=== PATIENT | female | born 2000 | race Caucasian/White ===

== ENCOUNTER 2023-01-26 09:27 | Observation (INO) | payer SELFPAY ==
[2023-01-26] MEDS ORDERED: fentaNYL 50 mcg/mL 1 mL Vial ONE ×2 (09:50→15:14)
[2023-01-26 10:25] LABS: #Basophils 0.1 10x3/uL (0.0-0.2); #Eosinphils 0.2 10x3/uL (0.0-0.5); #Neutrophils 11.4 10x3/uL (1.5-8.4); %Basophils 0.3 % (0.0-2.0); %Lymphocytes 23.3 % (18.0-47.0); %Monocytes 5.8 % (0.0-10.0); Hemoglobin 11.9 g/dL (12.0-15.5); Mean Corpuscular Hemoglobin 28.9 pg (27.0-33.0); Mean Corpuscular Volume 87.6 fl (81.6-98.3); Mean Platelet Volume 10.6 fl (7.4-10.4); Platelet Count 267 10x3/uL (150-450); RBC Distribution Width 12.8 % (11.5-14.5); Red Blood Cell (RBC) Count 4.12 10x6/uL (3.90-5.03); White Blood Cell (WBC) Count 16.5 10x3/uL (3.5-10.5)
[2023-01-26 10:38] LABS: BHCG - Serum Negative (NEGATIVE); Pregs Control Background? CLEAR/WHITE (CLR/WHITE); Pregs Control Bar Appear? YES (CONTROL BAR)
[2023-01-26 10:47] LABS: ALT (SGPT) 12 U/L (8-55); AST (SGOT) 18 U/L (5-34); Albumin 4.1 g/dL (3.5-5.0); Alkaline Phosphatase 69 U/L (40-100); Anion Gap 13 mmol/L (10-20); BUN (Urea Nitrogen) 12 mg/dL (7.0-18.7); Bilirubin, Total 0.2 mg/dL (0.2-1.2); Calc. Creatinine Clearance 0 mL/min (70-130); Calcium 9.1 mg/dL (7.8-10.44); Carbon Dioxide 26 mmol/L (22-29); Chloride 106 mmol/L (98-107); Estimated GFR 103; Globulin 2.7 g/dL (2.4-3.5); Glucose 124 mg/dL (70-105); Lipase 24 U/L (8-78); Potassium 3.8 mmol/L (3.5-5.1); Protein, Total 6.8 g/dL (6.0-8.3); Sodium 141 mmol/L (136-145)
[2023-01-26] MEDS ORDERED: Ketorolac Tromethamine 30 MG/ML VIAL ONE (10:57)
[2023-01-26] MEDS ORDERED: Morphine 2 MG/ML VIAL ONE (13:47)
[2023-01-26] MEDS ORDERED: Iopamidol 300 61% 100 ML VIAL FS ONE (14:17)
[2023-01-26 14:21] LABS: Hemoglobin 10.5 g/dL (12.0-15.5)
[2023-01-26] MEDS ORDERED: Bupivacaine HCl 0.5%/Epinephrine 1:200,000/PF 30 ml Vial ONE ×2 (15:05→15:06)
[2023-01-26] MEDS ORDERED: CEFAZOLIN 2 GM VIAL ONE ×2 (15:05)
[2023-01-26] MEDS ORDERED: PROPOFOL 20 ML ONE (15:14)
[2023-01-26] MEDS ORDERED: Ondansetron PF 4 MG/2 ML Vial ONE (15:15)
[2023-01-26] MEDS ORDERED: Rocuronium Bromide 10 MG/ML (10ML VIAL) ONE (15:15)
[2023-01-26] MEDS ORDERED: Lidocaine 1% PF 5 ML VIAL ONE (15:15)
[2023-01-26] MEDS ORDERED: Dexamethasone 20 MG/5 ML VIAL ONE (15:15)
[2023-01-26] MEDS ORDERED: SUGAMMADEX SODIUM 200 MG/2 ML VIAL ONE (15:16)
[2023-01-26] MEDS ORDERED: Ondansetron ODT 4 MG TAB PO PRN (16:52)
[2023-01-26 17:56] VITALS: BMI 22.4
[2023-01-26] MEDS: HYDROcodone/Acetaminophen 5/325 mg Tablet PO PRN (21:44)
[2023-01-26] MEDS ORDERED: Morphine 4 MG/ML VIAL SLOW IVP SCH (23:59)
[2023-01-27 00:34] LABS: Hemoglobin 10.3 g/dL (12.0-15.5); Platelet Count 237 10x3/uL (150-450)
[2023-01-27] MEDS: Simethicone Chewable 80 MG TAB PO PRN ×2 (03:00→09:21)
[2023-01-27] MEDS: HYDROcodone/Acetaminophen 5/325 mg Tablet PO PRN ×2 (03:00→09:21)
[2023-01-27 08:55] VITALS: BP 92/50; TEMP 98.4
== END 2023-01-27 11:08 | disposition home or self-care (01) ==
LOC: CSHERS 09:27 → CSHPED 17:51
PROVIDERS: ADMIT Obstetrics & Gynecology; ATTEND Obstetrics & Gynecology
PROC: 0U914ZX Drainage of Left Ovary, Percutaneous Endoscopic Approach, Diagnostic (ICD-10-PCS; principal; 2023-01-26)
DX: R10.9 Unspecified abdominal pain (principal); R42 Dizziness and giddiness; F41.9 Anxiety disorder, unspecified; I95.9 Hypotension, unspecified; F32.A Depression, unspecified; Z90.89 Acquired absence of other organs; Z88.1 Allergy status to other antibiotic agents; Z79.899 Other long term (current) drug therapy
CPT/HCPCS: 36415; 74177; 76856; 80053; 83605; 83690; 84703; 85014; 85018; 85025; 85049; 86850; 86900; 86901; 96374; 96375; C1776; J1100; J1885; J2270; J2272; J2405; J2704; J3010; Q9967